=== PATIENT | female | born 1980 | race Caucasian/White ===

== ENCOUNTER 2018-04-19 12:37 | Outpatient (CLI) | payer OTHER | END 2018-04-19 19:41 | disposition home or self-care (01) | LOC: SMA 12:37 | DX: Z12.31 Encounter for screening mammogram for malignant neoplasm of breast (principal); Z80.3 Family history of malignant neoplasm of breast | CPT/HCPCS: 77067 ==

== ENCOUNTER 2019-06-02 10:15 | Outpatient (CLI) | payer OTHER ==
[2019-06-02 11:09] LABS: INR 3.1 (0.8-1.2)
[2019-06-02 11:24] LABS: PROTHROMBIN TIME 30.3 SECS (9.5-12.5)
== END 2019-06-02 18:50 | disposition home or self-care (01) ==
LOC: SMA 10:15
DX: Z12.31 Encounter for screening mammogram for malignant neoplasm of breast (principal); Z79.02 Long term (current) use of antithrombotics/antiplatelets; I48.92 Unspecified atrial flutter
CPT/HCPCS: 36415; 77067; 85610-TC